=== PATIENT | female | born 1980 | race Caucasian/White ===

== ENCOUNTER 2020-12-08 10:27 | Emergency (ER) | payer OTHER, SELFPAY ==
--- NOTE | ~2020-12-08 | XR_ITS ---
EXAMINATION: XR HAND, LEFT CLINICAL INFORMATION: Injury COMPARISON: None TECHNIQUE: PA, lateral, and oblique views of the left hand. FINDINGS: The bones and soft tissues are normal. No fracture. Alignment is anatomic. Joint spaces are maintained. No erosions or soft tissue calcifications. XR/XR hand LT min 3V IMPRESSION: Normal left hand.
[2020-12-08 10:51] VITALS: BP 140/97; PULSE 77; RESP 16; TEMP 36.8; O2SAT 98; BMI 35.7
--- NOTE | 2020-12-08 11:57 | ED.EXTPRO ---
HPI - Extremity Problem General Chief complaint: Extremity Injury, Upper Stated complaint: HAND INJ AT WORK Time Seen by Provider: 12/08/20 11:37 Source: patient Mode of arrival: ambulatory Limitations: no limitations History of Present Illness HPI Narrative: Patient presents to ED for left hand pain. Patient states injury occurred at work. Patient states her left arm was pinned between shelf and stool door. Patient has full range of motion of left upper extremity and fingers. Patient denies falling to the ground or any head trauma. Related Data Previous Rx's Medication Instructions Recorded naproxen 500 mg PO BID PRN #20 tab 12/08/20 Allergies Allergy/AdvReac Type Severity Reaction Status Date / Time Black Stiches Allergy Unknown itching Uncoded 12/08/20 10:57 BLACK SUTURES Allergy Unknown INFECTION Uncoded 12/08/20 10:57 x3 plastic tape Allergy Unknown redness Uncoded 12/08/20 10:57 Review of Systems Review of Systems: Yes all other systems are reviewed and are negative Constitutional: Constitutional: Reports as per HPI and Reports no additional constitutional complaints Eyes: Eyes: Reports as per HPI and Reports no additional eye complaints ENT: Reports system reviewed and no additional complaints, except as documented and Reports as per HPI Cardiovascular: Cardiovascular: Reports as per HPI and Reports no additional cardiovascular complaints Respiratory: Respiratory: Reports as per HPI and Reports no additional respiratory complaints Gastrointestinal: Gastrointestinal: Reports as per HPI and Reports no additional gastrointestinal complaints Genitourinary: Genitourinary: Reports no additional female genitourinary complaints and Reports as per HPI Musculoskeletal: Musculoskeletal: Reports no additional musculoskeletal complaints, Reports as per HPI and Reports arthralgias (Left hand) Comments: Left hand pain Neurologic: Reports system reviewed and no additional complaints, except as documented and Reports as per HPI Psychiatric: Psychiatric: Reports no additional psychiatric complaints and Reports as per HPI PMF Past Medical History Medical History (Updated 12/08/20 @ 12:34 by RAVEN Turner) No known health problems Social History Social History Alcohol intake: never Patient Tobacco Use Status: Never used Tobacco Use of substances other than those prescribed or required for medical reasons: No Advance Directives: Yes Advance Directives Information Provided: No Advance Directives on File: No Patient : No Physical Exam Vital Signs: Vital Signs: Last Vital Signs Temp 98.3 F 12/08/20 10:51 Pulse 77 12/08/20 10:51 Resp 16 12/08/20 10:51 BP 140/97 H 12/08/20 10:51 Pulse Ox 98 12/08/20 10:51 Body Mass Index 35.7 Const: General: cooperative, healthy appearing, comfortable, no acute distress, well developed, alert and awake Orientation/consciousness: patient oriented x3 HENMT: Head: Yes normal to inspection, Yes No palpable skull fracture present, Yes normocephalic, Yes atraumatic and No abrasion Eyes: General: appearance normal, both eyes and all related structures Neck: Neck: Yes normal visual inspection, Yes full ROM, Yes no lymphadenopathy, Yes no meningeal signs, Yes trachea midline, Yes supple and No tender Chest: Chest palpation & inspection: normal inspection of the chest and normal palpation of entire chest wall Resp: Effort & Inspection: normal respiratory effort and able to speak in complete sentences Auscultation: clear to auscultation bilaterally Cardio: Jugular venous distension: no JVD Heart sounds: S1 normal heart sound present and S2 normal heart sound present GI: Inspection: Yes normal to inspection and No abdominal wall ecchymosis Palpation (GI): Soft to palpation, not firm, nontender, no guarding and not rigid : General: No CVA tenderness and Yes no CVA tenderness Back/Spine/Pelvis: Back: no CVA tenderness, No CVA tenderness and No back tenderness Skin: General skin exam: no rashes or lesions noted and elasticity normal Neuro: General: patient oriented x3, no meningeal signs and CN's II-XI intact bilaterally Cranial nerves: Yes CN's II-XII intact bilaterally Extrem: Other: Left upper extremity: Positive for contusion on the dorsal aspect on 1st metacarpal. Negative for any deformities or decrease in range of motion of fingers. Capillary refill is intact. Negative for any snuffbox tenderness. Negative for any tenderness or deformity of left forearm humerus or shoulder. Radial pulse intact. Neuro exam is intact General: Yes normal to inspection and Yes full ROM Psych: Appearance: grossly normal, well kempt and not disheveled Course Course Course Narrative: Will send patient for upper extremity x-ray. Reevaluation(s) Reevaluation #1: Hand x-ray negative for fractures. MDM - Extremity (Nontraumatic) MDM Narrative Medical decision making narrative: Contusion Discharge Plan Discharge Clinical Impression: Contusion Patient Disposition: Home, Self-Care Instructions: Contusion in Adults (ED) Additional Instructions: Return to the ED immediately for worsening pain, increased swelling, bluish/black discoloration fingers, coldness of extremity, redness, hotness, chest pain, shortness of breath, fever, chills, or any other concerning symptoms. Prescriptions: New naproxen 500 mg tablet 500 mg PO BID PRN (Reason: pain) Qty: 20 RF: 0 Referrals: Aury Mccrary MD [Primary Care Provider] - 2 days (hand contusion) Interventions: ED Discharge Assessment Last Done: 12/08/20 12:46 Discharge Date/Time: 12/08/20 12:46 Print Language: Citizen Of [place]
== END 2020-12-08 12:46 | disposition home or self-care (01) ==
PROVIDERS: Emergency Provider Emergency Medicine Emergency Medical Services; PCP Internal Medicine
DX: S60.222A Contusion of left hand, initial encounter (principal); W23.1XXA Caught, crushed, jammed, or pinched between stationary objects, initial encounter; Y93.89 Activity, other specified; Y92.59 Other trade areas as the place of occurrence of the external cause; Y99.0 Civilian activity done for income or pay
CPT/HCPCS: 73130; 99283; 99284

== ENCOUNTER 2021-02-04 11:48 | Outpatient (REF) | payer OTHER, SELFPAY ==
--- NOTE | ~2021-02-04 | XR_ITS ---
EXAMINATION: XR HAND, LEFT CLINICAL INFORMATION: Pain COMPARISON: Previous x-ray November 2020 TECHNIQUE: PA, lateral, and oblique views of the left hand. FINDINGS: The bones and soft tissues are normal. No fracture. Alignment is anatomic. Joint spaces are maintained. No erosions or soft tissue calcifications. XR/XR hand LT min 3V IMPRESSION: Normal left hand.
== END 2021-02-04 11:49 | disposition home or self-care (01) ==
LOC: HO.HOSX 11:48
PROVIDERS: Visit Provider Orthopaedic Surgery
DX: M79.642 Pain in left hand (principal)
CPT/HCPCS: 73130; 99202

== ENCOUNTER → 2021-03-05 08:37 | Outpatient (BNVA) | payer OTHER, SELFPAY | PROVIDERS: Visit Provider Orthopaedic Surgery | DX: M79.642 Pain in left hand (principal) | CPT/HCPCS: 99212 ==

== ENCOUNTER 2021-04-03 10:39 | Outpatient (RCR) | payer OTHER, SELFPAY ==
--- NOTE | 2021-04-17 14:47 | MHC.OT.DC ---
[address] [phone] F: [phone] Occupational Therapy Discharge Note Provider: Dr Roberts Diagnosis: Left hand contusion Date of Evaluation: 04/03/21 Date of Discharge: 04/17/21 Treatments to Date: 1 Cancellations to Date: 2 No Shows to Date: 2 Discharge Status: Patient Elected to Stop Discharge Summary: Juan Carlos was seen for initial OT assessment about four months after left hand crush injury, with persistent hand pain and edema. She had decreased strength on assessment and has been on light duty. She has missed several OT appts and has not attended since initial OT assessment and we will discharge at this time per attendance policy. Electronically Signed By: Kairme Ballard OTR/L Please Sign and return to therapist, thank you for your referral.
== END 2021-04-17 14:48 | disposition home or self-care (01) ==
LOC: HO.OT 10:39
PROVIDERS: Visit Provider Orthopaedic Surgery
DX: M79.642 Pain in left hand (principal)
CPT/HCPCS: 97140; 97165

== ENCOUNTER 2021-12-13 20:03 | Emergency (ER) | payer OTHER, SELFPAY ==
--- NOTE | ~2021-12-13 | XR_ITS ---
Examination: XR shoulder RT min 2V, XR forearm RT 2V Indication: fall Comparison: No pertinent prior studies are currently available for comparison. Technique: 3 views of the right shoulder and 2 views of the right forearm obtained. Findings: Right shoulder: Humeral head is well-seated in the glenoid fossa. No acute fracture or dislocation. Tiny calcification along the superior aspect of the humeral head may represent some mild calcific tendinitis. Visualized ribs unremarkable. Right forearm: Mild soft tissue swelling suggested about the forearm. No acute fracture or dislocation. XR/XR shoulder RT min 2V Impression: No acute fracture or dislocation. Mild soft tissue swelling about the forearm.
--- NOTE | ~2021-12-13 | XR_ITS ---
Examination: XR shoulder RT min 2V, XR forearm RT 2V Indication: fall Comparison: No pertinent prior studies are currently available for comparison. Technique: 3 views of the right shoulder and 2 views of the right forearm obtained. Findings: Right shoulder: Humeral head is well-seated in the glenoid fossa. No acute fracture or dislocation. Tiny calcification along the superior aspect of the humeral head may represent some mild calcific tendinitis. Visualized ribs unremarkable. Right forearm: Mild soft tissue swelling suggested about the forearm. No acute fracture or dislocation. XR/XR forearm RT 2V Impression: No acute fracture or dislocation. Mild soft tissue swelling about the forearm.
[2021-12-13 20:21] VITALS: BP 153/81; PULSE 69; RESP 16; TEMP 37.6; O2SAT 100; BMI 39.8
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
[2021-12-13] MEDS: oxyCODONE HCl Immed Release 5 MG TABLET PO (21:56)
== END 2021-12-13 22:03 | disposition home or self-care (01) ==
PROVIDERS: Emergency Provider Emergency Medicine; PCP Internal Medicine
DX: S40.012A Contusion of left shoulder, initial encounter (principal); S50.12XA Contusion of left forearm, initial encounter; V00.141A Fall from scooter (nonmotorized), initial encounter; Y93.89 Activity, other specified; Y92.414 Local residential or business street as the place of occurrence of the external cause; Y99.9 Unspecified external cause status
CPT/HCPCS: 73030; 73090; 99282; 99283

== ENCOUNTER 2022-02-10 08:17 | Outpatient (REF) | payer OTHER, SELFPAY ==
--- NOTE | ~2022-02-10 | XR_ITS ---
EXAMINATION: XR ELBOW, RIGHT CLINICAL INFORMATION: Elbow pain. COMPARISON: Radiographs right forearm 12/13/2021. TECHNIQUE: AP, lateral, and oblique views of the right elbow. FINDINGS: There is an intra-articular fracture involving the radial head. Depression of the fracture fragment is under 1.5 mm. There is no dislocation or destructive process. Remainder of the bony structures appear intact. There is no erosive change. Small olecranon spur present. No significant capsular effusion. XR/XR elbow RT min 3V IMPRESSION: Intra-articular fracture radial head.
== END 2022-02-10 08:18 | disposition home or self-care (01) ==
LOC: HO.HOSX 08:17
PROVIDERS: Visit Provider Physician Assistant
DX: M25.521 Pain in right elbow (principal)
CPT/HCPCS: 73080

== ENCOUNTER 2022-03-24 07:53 | Outpatient (REF) | payer OTHER, SELFPAY ==
--- NOTE | ~2022-03-24 | XR_ITS ---
EXAMINATION: XR ELBOW, RIGHT XR WRIST, RIGHT CLINICAL INFORMATION: Pain. COMPARISON: Right elbow radiographs dated 02/10/2022 and right forearm radiographs dated 12/13/2021. TECHNIQUE: AP, oblique, and lateral views of the right elbow. AP, oblique, and lateral views of the right wrist. FINDINGS: RIGHT ELBOW: Redemonstration of an anterolateral radial head fracture in unchanged anatomic alignment with mild new bone/callus formation. Minimal persistent cortical step off appears unchanged. No additional fracture or dislocation. No joint space narrowing or marginal osteophytes. No osseous erosion. Small olecranon enthesophyte. Right wrist: No acute fracture or dislocation. Normal carpal alignment. No joint space narrowing or marginal osteophytes. No osseous erosion. No abnormal soft tissue calcification. XR/XR wrist RT min 3V IMPRESSION: Right elbow: Radial head fracture in unchanged anatomic alignment with mild new bone/callus formation. Right wrist: Unremarkable examination.
--- NOTE | ~2022-03-24 | XR_ITS ---
EXAMINATION: XR ELBOW, RIGHT XR WRIST, RIGHT CLINICAL INFORMATION: Pain. COMPARISON: Right elbow radiographs dated 02/10/2022 and right forearm radiographs dated 12/13/2021. TECHNIQUE: AP, oblique, and lateral views of the right elbow. AP, oblique, and lateral views of the right wrist. FINDINGS: RIGHT ELBOW: Redemonstration of an anterolateral radial head fracture in unchanged anatomic alignment with mild new bone/callus formation. Minimal persistent cortical step off appears unchanged. No additional fracture or dislocation. No joint space narrowing or marginal osteophytes. No osseous erosion. Small olecranon enthesophyte. Right wrist: No acute fracture or dislocation. Normal carpal alignment. No joint space narrowing or marginal osteophytes. No osseous erosion. No abnormal soft tissue calcification. XR/XR elbow RT min 3V IMPRESSION: Right elbow: Radial head fracture in unchanged anatomic alignment with mild new bone/callus formation. Right wrist: Unremarkable examination.
== END 2022-03-24 07:54 | disposition home or self-care (01) ==
LOC: HO.HOSX 07:53
PROVIDERS: Visit Provider Physician Assistant
DX: M25.521 Pain in right elbow (principal); M25.531 Pain in right wrist
CPT/HCPCS: 73080; 73110

== ENCOUNTER 2022-04-17 17:46 | Outpatient (REF) | payer OTHER, SELFPAY ==
--- NOTE | ~2022-04-17 | MR_ITS ---
EXAMINATION: MRI ELBOW WITHOUT CONTRAST, RIGHT CLINICAL INFORMATION: Displaced fracture of head of right radius. COMPARISON: X-ray 03/24/2022 TECHNIQUE: MR of the elbow without contrast was performed on a 1.5 Penelope axial scanner. FINDINGS: BONE AND JOINTS: There is an intra-articular fracture of the radial head. There appears to be minimal distraction/displacement. Associated marrow edema. There is edema in the proximal ulna, including involving the coronoid process. No discrete fracture plane is seen. Small joint effusion. TENDONS AND MUSCLES: Biceps and brachialis tendons intact. Triceps tendon is intact. Common flexor and common extensor tendon is intact. LIGAMENTS: Intact ULNAR NERVE: Within normal limits MR/MR elbow RT wo con IMPRESSION: 1. Radial head intra-articular fracture with minimal distraction/displacement. Associated marrow edema. 2. Findings in the proximal ulna and coronoid process, suggestive of bone contusion. No discrete fracture plane is evident by MRI. 3. Small elbow joint effusion.
== END 2022-04-17 17:47 | disposition home or self-care (01) ==
LOC: HO.MRI 17:46
PROVIDERS: Visit Provider Physician Assistant
DX: S52.121A Displaced fracture of head of right radius, initial encounter for closed fracture (principal)
CPT/HCPCS: 73221